=== PATIENT | male | born 1945 | race Caucasian/White ===

== ENCOUNTER 2018-08-12 07:34 | Day surgery (SDC) | payer OTHER ==
[2018-08-10 13:31] VITALS: BP 134/91
[2018-08-10 13:31] LABS: BASOPHILS % (AUTO) 0.4 % (0.0-5.0); EOSINOPHILS % (AUTO) 3.5 % (0.0-8.0); HEMATOCRIT 40.3 % (42-54); LYMPHOCYTES % (AUTO) 27.5 % (21.0-51.0); MEAN CORPUSCULAR HEMOGLOBIN 31.9 pg (27.0-33.0); MEAN CORPUSCULAR HGB CONC 33.6 g/dL (32.0-36.0); MEAN CORPUSCULAR VOLUME 94.9 fL (79-99); MONOCYTES % (AUTO) 6.6 % (3.0-13.0); NUCLEATED RED BLOOD CELLS 0.1 % (0.0-0.19); PLATELET COUNT (AUTO) 205 K/uL (130-400); RED BLOOD CELL COUNT(AUTO) 4.25 MIL/uL (4.50-6.20); WHITE BLOOD COUNT (AUTO) 8.8 K/uL (4.8-10.8)
[2018-08-10 13:46] LABS: CREATININE 1.1 mg/dL (0.5-1.5); INR 1.11 (0.85-1.15); PARTIAL THROMBOPLASTIN TIME 33.1 SEC (26.3-35.5); POTASSIUM 4.6 mmol/L (3.5-5.1); PROTHROMBIN TIME 11.6 SEC (9.6-11.6)
[~2018-08-12] VITALS: Ht 180.3 cm; Wt 112.8 kg
[2018-08-12] VITALS (13 sets, daily range): BP systolic 131–166; BP diastolic 70–108
[~2018-08-12 07:34] MED LIST: ACET-2900 PO; CYAN-35 PO; FOLI1TAB15 PO; LORA10TA7 PO; MULT-1077 PO; PRIM50TA29 PO; PROP225C8 PO; RIVA1.5C6 PO; RIVA20TA PO; ROPI0.257 PO; SODIUM CHLORIDE 0.9% 1000ML 1,000 ML IV SCH; TOPI100T37 PO; UBID1CAP56 PO; VITA1TAB39 PO
[2018-08-12] MEDS ORDERED: PROPOFOL 10 MG/ML 20ML VIAL IV ONE (09:14)
[2018-08-12] MEDS ORDERED: LIDOCAINE HCL 2% 20ML ONE (09:16)
[2018-08-12] MEDS ORDERED: ATROPINE SULFATE 0.1 MG/ML 10 ML SYG IVP ONE (09:16)
== END 2018-08-12 11:05 | disposition home or self-care (01) ==
LOC: DAH 07:34
PROVIDERS: ATTEND Internal Medicine Cardiovascular Disease
DX: I48.1 Persistent atrial fibrillation (principal); Z79.899 Other long term (current) drug therapy; Z98.890 Other specified postprocedural states; I42.8 Other cardiomyopathies; Z68.34 Body mass index [BMI] 34.0-34.9, adult; Z88.8 Allergy status to other drugs, medicaments and biological substances
CPT/HCPCS: 36415; 80048; 85025; 85610; 85730; 92960; 93005 ×2; A4606; J0461; J2704; J3490

== ENCOUNTER 2018-10-04 07:30 | Day surgery (SDC) | payer OTHER ==
[2018-09-30 15:02] VITALS: BP 117/65
[2018-09-30 15:13] LABS: BASOPHILS % (AUTO) 0.5 % (0.0-5.0); EOSINOPHILS % (AUTO) 4.7 % (0.0-8.0); HEMATOCRIT 39.3 % (42-54); LYMPHOCYTES % (AUTO) 31.3 % (21.0-51.0); MEAN CORPUSCULAR HEMOGLOBIN 31.9 pg (27.0-33.0); MEAN CORPUSCULAR HGB CONC 33.8 g/dL (32.0-36.0); MEAN CORPUSCULAR VOLUME 94.4 fL (79-99); MONOCYTES % (AUTO) 7.9 % (3.0-13.0); NEUTROPHILS % (AUTO) 55.6 % (40.0-77.0); PLATELET COUNT (AUTO) 217 K/uL (130-400); RED BLOOD CELL COUNT(AUTO) 4.16 MIL/uL (4.50-6.20); RED CELL DISTRIBUTION WIDTH 13.6 % (11.0-15.5); WHITE BLOOD COUNT (AUTO) 6.9 K/uL (4.8-10.8)
[2018-09-30 15:21] LABS: POTASSIUM 4.7 mmol/L (3.5-5.1)
[2018-09-30 15:25] LABS: INR 1.1 (0.85-1.15); PARTIAL THROMBOPLASTIN TIME 32.7 SEC (26.3-35.5); PROTHROMBIN TIME 11.5 SEC (9.6-11.6)
[2018-10-04] VITALS (11 sets, daily range): BP systolic 96–133; BP diastolic 41–77
[~2018-10-04] VITALS: Ht 180.3 cm; Wt 111.2 kg
[~2018-10-04 07:30] MED LIST changes: +GLUC-145 PO; -LORA10TA7 PO; +METO-408 PO; +MONT10TA24 PO; -PROP225C8 PO; +PROP325C5 PO
[2018-10-04] MEDS ORDERED: PROPOFOL 10 MG/ML 20ML VIAL IV ONE (08:29)
[2018-10-04] MEDS ORDERED: SUCCINYLCHOLINE 200MG/10ML SYR ONE (08:29)
[2018-10-04] MEDS ORDERED: GLYCOPYRROLATE 1 MG/5 ML SYRINGE ONE (08:29)
[2018-10-04] MEDS ORDERED: LIDOCAINE HCL 5% OINT 36GM TUBE TP ONE (08:29)
[2018-10-04] MEDS ORDERED: ATROPINE SULFATE 0.1 MG/ML 10 ML SYG IVP ONE (08:29)
[2018-10-04] MEDS ORDERED: PROPOFOL 1000 MG/100 ML 0 ML IV ONE (08:53)
[2018-10-04] MEDS ORDERED: PROP325C5 PO (09:19)
--- NOTE | 2018-10-04 10:05 | NUR ---
CARDIOVERSION: DR. HUNTER IN ROOM TIME: 841 TIME OUT : 841 SEDATION START TIME : 842 DR. HURST SHOCK DELIVERED TIME: 843 SHOCK DELIVERED TIME: 845 SHOCK DELIVERED TIME: 850 - PADDLES PT CONVERTED, PT STABLE VITAL STABLE REOVERY TIME: 852 PROCEDURE COMPLETE TIME: 852 PT MONITORED, NO DISTRESS RESTING DR. HUNTER OUT OF ROOM TIME: 910 NURSING: PT TOLERATED PROCEDURE WELL, MAINTAINED CONVERTED RHYTHM, NO C/O OF CHEST PAIN NO DISCOMFORT STATES, POST CARE INSTRUCTIONS AND FOLLOW UP APPOINTMENT GIVEN TO PT AND , BOTH VERBALIZED UNDERSTANDING, PT DRESSED AT BEDSIDE, ABLE TO TOLERATE FLUIDS, PT TAKE TO CAR IN WHEELCHAIR , DRIVEN HOME BY .
== END 2018-10-04 10:05 | disposition home or self-care (01) ==
LOC: DAH 07:30
PROVIDERS: ATTEND Internal Medicine Cardiovascular Disease
DX: I48.2 Chronic atrial fibrillation (principal); Z88.8 Allergy status to other drugs, medicaments and biological substances; M17.0 Bilateral primary osteoarthritis of knee; Z79.899 Other long term (current) drug therapy; Z79.01 Long term (current) use of anticoagulants; Z98.890 Other specified postprocedural states; Z68.34 Body mass index [BMI] 34.0-34.9, adult; G20 Parkinson's disease; I10 Essential (primary) hypertension
CPT/HCPCS: 36415; 80048; 85025; 85610; 85730; 92960; 93005; A4606; J2704; J0330; J0461; J3490

== ENCOUNTER 2018-11-18 05:40 | Day surgery (SDC) | payer OTHER ==
[2018-11-16 12:47] VITALS: BP 120/66
[2018-11-16 13:14] LABS: BASOPHILS % (AUTO) 0.4 % (0.0-5.0); EOSINOPHILS % (AUTO) 3.5 % (0.0-8.0); LYMPHOCYTES % (AUTO) 29.3 % (21.0-51.0); MEAN CORPUSCULAR HEMOGLOBIN 32.2 pg (27.0-33.0); MEAN CORPUSCULAR HGB CONC 34.5 g/dL (32.0-36.0); MEAN CORPUSCULAR VOLUME 93.5 fL (79-99); MONOCYTES % (AUTO) 8.1 % (3.0-13.0); NEUTROPHILS % (AUTO) 58.7 % (40.0-77.0); PLATELET COUNT (AUTO) 193 K/uL (130-400); RED BLOOD CELL COUNT(AUTO) 4.07 MIL/uL (4.50-6.20); RED CELL DISTRIBUTION WIDTH 13.6 % (11.0-15.5); WHITE BLOOD COUNT (AUTO) 7.6 K/uL (4.8-10.8)
[2018-11-16 13:30] LABS: POTASSIUM 4.4 mmol/L (3.5-5.1)
[2018-11-16 13:46] LABS: INR 1.08 (0.85-1.15); PROTHROMBIN TIME 11.3 SEC (9.6-11.6)
[~2018-11-18] VITALS: Ht 180.3 cm; Wt 111.1 kg
[2018-11-18] VITALS (7 sets, daily range): BP systolic 100–120; BP diastolic 63–75
[~2018-11-18 05:40] MED LIST changes: -SODIUM CHLORIDE 0.9% 1000ML 1,000 ML IV SCH
[2018-11-18] MEDS ORDERED: SODIUM CHLORIDE 0.9% 1000ML 1,000 ML IV SCH (06:00)
--- NOTE | 2018-11-18 06:32 | NUR ---
SKIN SKIN DISCOLORATION TO BLE, DRY SCABS NOTED TO KAIDEN ANKLE AREAS. NO OPEN AREAS.
--- NOTE | 2018-11-18 09:00 | NUR ---
PROCEDURE PT TAKEN TO [employer] FOR PROCEDURE, PT AWAKE AND ALERT , NO DISTRESS NOTED , SPOUSE AT BEDSIDE
[2018-11-18] MEDS ORDERED: LIDOCAINE HCL 2% 20ML ONE (09:22)
[2018-11-18] MEDS ORDERED: MEPERIDINE-PF 25 MG/ML SYG ONE ×2 (09:22→10:33)
[2018-11-18] MEDS ORDERED: MIDAZOLAM HCL 1 MG/ML 2ML VIAL ONE ×2 (09:22→10:33)
[2018-11-18] MEDS ORDERED: HEPARIN SODIUM 1000UNIT/ML 10ML VIAL ONE (09:22)
--- NOTE | 2018-11-18 11:55 | NUR ---
CATH RECEIVED PT BACK FROM [facility] S/P ATRIAL FLUTTER ABLATION . RIGHT GROIN DRESSING DRY AND INTACT, NEUROVASCULAR CHECKS WNL. TO RIGHT LEG PT AWAKE AND ALERT IN BED, NO DISTRESS NOTED, DENIES ANY PAIN OR DISCOMFORTS. INSTRUCTED TO KEEP BEDREST FOR 3 HRS. PLAN OF CARE DISCUSS WITH PATIENT/ SPOUSE.
--- NOTE | 2018-11-18 14:11 | NUR ---
DC DC INSTRUCTIONS GIVEN TO PT / PTS SPOUSE, INSTRUCTED TO F/U WITH DR. HUNTER. TO STOP METOPROLOL PER DR. HUNTER AND RESUME OTHER HOME MEDS. RIGHT GROIN DRESSING DRY AND INTACT, PIV REMOVED, CATHETER INTACT, SITE ASYMPTOMATIC.
--- NOTE | 2018-11-18 14:40 | NUR ---
DC PT DC HOME VIA WC, NO DISTRESS NOTED. ACCOMPANIED BY SPOUSE
== END 2018-11-18 14:40 | disposition home or self-care (01) ==
LOC: DAH 05:40
PROVIDERS: ATTEND Internal Medicine Cardiovascular Disease
DX: I48.3 Typical atrial flutter (principal); I48.91 Unspecified atrial fibrillation; Z68.34 Body mass index [BMI] 34.0-34.9, adult; Z79.899 Other long term (current) drug therapy; M17.0 Bilateral primary osteoarthritis of knee; Z98.890 Other specified postprocedural states; Z79.01 Long term (current) use of anticoagulants; R00.1 Bradycardia, unspecified
CPT/HCPCS: 36415; 80048; 85025; 85610; 85730; 93005; 93613; 93621; 93653; A4606; A4649; C1730 ×2; C1732; C1893; C1894 ×2; J1644 ×2; J2175 ×2; J2250 ×2; J3490; J7030; 99156; 99157

== ENCOUNTER 2018-11-19 19:14 | Emergency (ER) | payer OTHER ==
[2018-11-19] MEDS ORDERED: ASPIRIN 325 MG TABLET ONE (19:57)
[2018-11-19 21:31] LABS: BASOPHILS % (AUTO) 0.1 % (0.0-5.0); EOSINOPHILS % (AUTO) 0.8 % (0.0-8.0); HEMATOCRIT 34.6 % (42-54); LYMPHOCYTES % (AUTO) 11.6 % (21.0-51.0); MEAN CORPUSCULAR HEMOGLOBIN 32.2 pg (27.0-33.0); MEAN CORPUSCULAR HGB CONC 34.3 g/dL (32.0-36.0); MEAN CORPUSCULAR VOLUME 93.9 fL (79-99); MONOCYTES % (AUTO) 6.3 % (3.0-13.0); NEUTROPHILS % (AUTO) 81.2 % (40.0-77.0); PLATELET COUNT (AUTO) 155 K/uL (130-400); RED BLOOD CELL COUNT(AUTO) 3.69 MIL/uL (4.50-6.20); RED CELL DISTRIBUTION WIDTH 13.4 % (11.0-15.5)
[2018-11-19 21:48] LABS: POTASSIUM 3.8 mmol/L (3.5-5.1)
[2018-11-19 21:50] LABS: INR 1.05 (0.85-1.15); PARTIAL THROMBOPLASTIN TIME 30.5 SEC (26.3-35.5)
[2018-11-19 21:52] LABS: ALBUMIN 3.7 g/dL (3.5-5.0); BILIRUBIN,TOTAL 0.4 mg/dL (0.2-1.0); TOTAL PROTEIN, SERUM 6.5 g/dL (6.0-8.3)
[2018-11-19 22:12] LABS: B-TYPE NATRIURETIC PEPTIDE 41 pg/mL (0-100)
== END 2018-11-20 00:56 | disposition home or self-care (01) ==
LOC: EDH 19:14
DX: R07.89 Other chest pain (principal); M54.6 Pain in thoracic spine; M62.838 Other muscle spasm; I48.91 Unspecified atrial fibrillation; Z98.890 Other specified postprocedural states; Z88.8 Allergy status to other drugs, medicaments and biological substances; Z88.5 Allergy status to narcotic agent
CPT/HCPCS: 36415; 71045; 80053; 82550; 83690; 83880; 84484; 85025; 85610; 85730; 93005